=== PATIENT | female | born 1960 | race Caucasian/White ===

== ENCOUNTER 2019-02-12 08:49 | Emergency (ER) | payer SELFPAY ==
[~2019-02-12] VITALS: Ht 170.2 cm; Wt 88.0 kg
[2019-02-12 09:03] VITALS: BP 149/92
[2019-02-12] MEDS ORDERED: DEXAMETHASONE 4 MG TABLET ONE (09:52)
[2019-02-12] MEDS ORDERED: DEXAMETHASONE 4 MG TABLET PO ONE (10:00)
== END 2019-02-12 10:39 | disposition home or self-care (01) ==
LOC: ED 10:27
DX: J02.8 Acute pharyngitis due to other specified organisms (principal); B34.9 Viral infection, unspecified
CPT/HCPCS: 87081; 87880; 99283